=== PATIENT | female | born 1950 | race Two or more races ===

== ENCOUNTER → 2018-07-24 | Outpatient (CLI) | payer MEDICARE, OTHER ==
[2018-07-24 11:10] LABS: BASOPHILS % (AUTO) 0.7 % (0.0-2.0); EOSINOPHILS % (AUTO) 3.5 % (1.0-6.0); HEMATOCRIT 39.5 % (36-46); HEMOGLOBIN 13.3 g/dL (12.0-16.0); LYMPHOCYTES # (AUTO) 2.3 K/uL (1.0-4.8); LYMPHOCYTES % (AUTO) 31.2 % (22.0-44.0); MEAN CORPUSCULAR HEMOGLOBIN 29.6 pg (26.0-34.0); MEAN CORPUSCULAR HGB CONC 33.6 G/dL (31.0-37.0); MEAN CORPUSCULAR VOLUME 88 fL (80-100); MONOCYTES # (AUTO) 0.4 K/uL (0.1-1.0); MONOCYTES % (AUTO) 5.9 % (2.0-9.0); NEUTROPHILS # (AUTO) 4.4 K/uL (1.8-7.7); NEUTROPHILS % (AUTO) 58.7 % (40.0-70.0); PLATELET COUNT (AUTO) 274 K/uL (150-450); RED BLOOD CELL COUNT(AUTO) 4.48 MIL/uL (4.00-5.20); RED CELL DISTRIBUTION WIDTH 14.1 % (11.5-14.5)
[2018-07-24 11:40] LABS: ALBUMIN 3.6 g/dL (3.4-5.0); BILIRUBIN,TOTAL 0.6 mg/dL (0.1-1.0); CALCIUM, TOTAL 8.8 mg/dL (8.8-10.5); CHOL/HDL RATIO 4.3 (3.9-5.7); CREATININE 1.06 mg/dL (0.60-1.30); FREE T4 (FREE THYROXINE) 1.26 ng/dL (0.76-1.46); POTASSIUM 4.6 mmol/L (3.5-5.1); THYROID STIMULATING HORMONE 0.91 uIU/mL (0.36-3.74); TOTAL PROTEIN, SERUM 7.6 g/dL (6.4-8.2)
[2018-07-24 12:19] LABS: HEMOGLOBIN A1C 7.8 % (4.5-6.2)
== END | disposition home or self-care (01) ==
LOC: LABPV 07:20
PROVIDERS: ATTEND Internal Medicine Cardiovascular Disease
DX: E55.9 Vitamin D deficiency, unspecified (principal); D56.5 Hemoglobin E-beta thalassemia; I11.0 Hypertensive heart disease with heart failure; I50.9 Heart failure, unspecified; E11.8 Type 2 diabetes mellitus with unspecified complications
CPT/HCPCS: 82306; 83036; 83735; 84439; 84443